=== PATIENT | female | born 1965 | race Caucasian/White ===

== ENCOUNTER 2018-02-28 08:26 | Emergency (ER) | payer OTHER ==
[~2018-02-28] VITALS: Ht 161.3 cm; Wt 99.4 kg
[~2018-02-28 08:26] MED LIST: ESCI10TA17 PO
[2018-02-28 08:46] VITALS: TEMP 36.9; Ht 161.3 cm; Wt 99.4 kg
[2018-02-28 09:01] VITALS: O2SAT 99
[2018-02-28] MEDS ORDERED: BIOT50006 PO (09:12)
[2018-02-28 09:29] LABS: BASO % 0.5 %; BASO ABS # 0.03 K/uL (0-0.2); EOS % 1.8 %; HEMATOCRIT 42.4 % (37-47); HEMOGLOBIN 13.8 g/dL (12.0-16.0); IG# 0.02 K/uL (0.00-0.02); LYMPH % 28.2 %; MEAN CELL VOLUME 88.1 fL (80-100); MEAN CORPUSCULAR HEMOGLOBIN 28.7 pg (25-34); MEAN CORPUSCULAR HGB CONC 32.5 g/dl (32-36); MEAN PLATELET VOLUME 8.8 fL (7.4-10.4); MONO ABS # 0.57 K/uL (0.11-0.59); NEUT % 59.1 %; NEUT ABS # 3.36 K/uL (1.4-6.5); PLATELET COUNT 283 K/uL (130-400); RED CELL DISTRIBUTION WIDTH SD 45.4 fL (36.4-46.3); WHITE BLOOD COUNT 5.68 K/uL (4.8-10.8)
--- NOTE | 2018-02-28 09:36 | DIAGNOSTIC IMAGING REPORT ---
CHEST ONE VIEW PORTABLE HISTORY: 52 years-old Female Evaluate Fever/Sepsis acute fever with sepsis COMPARISON: None available TECHNIQUE: Portable AP view of the chest FINDINGS: Cardiomediastinal and hilar silhouettes are within normal limits. Mild right hemidiaphragmatic elevation. Subsegmental left basilar opacities. There is no pneumothorax, pleural effusion or overt pulmonary edema. The bones of the chest appear grossly intact. IMPRESSION: 1. No acute process. 2. Subsegmental left basilar opacities suggest atelectasis. The above report was generated using voice recognition software. It may contain grammatical, syntax or spelling errors. Electronically signed by: Marky Dimas M.D. 02/28/2018 9:34 AM Dictated Date/Time: 02/28/2018 9:33 AM
[2018-02-28 09:41] LABS: PTT PATIENT 27.6 SECONDS (21.0-31.0)
[2018-02-28 09:44] LABS: ALBUMIN 3.7 gm/dl (3.4-5.0); ALKALINE PHOSPHATASE 71 U/L (45-117); ALT/SGPT 24 U/L (12-78); AST/SGOT 17 U/L (15-37); BLOOD UREA NITROGEN 9 mg/dl (7-18); CALCIUM 8.3 mg/dl (8.5-10.1); CARBON DIOXIDE 28 mmol/L (21-32); CKMB < 1.0 ng/ml (0.5-3.6); CREATININE 0.92 mg/dl (0.60-1.20); GLUCOSE 103 mg/dl (70-99); LIPASE 143 U/L (73-393); POTASSIUM 4.2 mmol/L (3.5-5.1); SODIUM 138 mmol/L (136-145); TOTAL PROTEIN 7.6 gm/dl (6.4-8.2)
[2018-02-28 12:30] VITALS: BP 106/55; PULSE 68; O2SAT 96
--- NOTE | 2018-02-28 13:02 | EMERGENCY ROOM VISIT NOTE ---
History Report prepared by Neri: Jose Srinivasan Under the Supervision of: Dr. Veto Clemens D.O. First contact with patient: 09:11 Chief Complaint: SHORTNESS OF BREATH Stated Complaint: SHORTNESS OF BREATH, BACK PAIN, DIZZINESS Nursing Triage Summary: Shortness of breath with her usual activity. Going upstairs with increased difficulty. History of Present Illness The patient is a 52 year old female who presents to the Emergency Room with complaints of worsening shortness of breath that began on , 4 days ago. The patient states that she first noticed becoming unusually short of breath when she was doing lunges at the gym. She then noticed becoming short of breath while walking up the stairs. She has been dizzy and has had some back pain with the shortness of breath, but she denies any chest pain. She denies any recent long trips/travels or swelling in her lower extremities. Source of History: patient Onset: 4 days ago Position: chest Quality: other (SOB) Timing: worsening Modifying Factors (Worsening): exertion Associated Symptoms: + back pain Note: Dizziness Review of Systems See HPI for pertinent positives & negatives. A total of 10 systems reviewed and were otherwise negative. Family History Cancer Heart disease Social History Smoking Status: Former Smoker Drug Use: none Marital Status: Housing Status: lives with significant other Current/Historical Medications Scheduled Biotin (Biotin), 5,000 MCG PO DAILY Escitalopram (Lexapro), 10 MG PO DAILY Allergies Coded Allergies: Sulfa Drugs (Verified Allergy, Unknown, 02/28/18) Physical Exam Vital Signs Date Time Temp Pulse Resp B/P (MAP) Pulse Ox O2 Delivery O2 Flow Rate FiO2 02/28/18 12:30 68 15 106/55 96 Room Air 02/28/18 12:00 72 20 118/63 94 Room Air 02/28/18 11:27 68 18 119/79 100 Room Air 02/28/18 10:30 62 16 111/71 95 Room Air 02/28/18 10:00 60 16 110/64 94 Room Air 02/28/18 09:30 61 20 117/69 95 Room Air 02/28/18 09:15 65 02/28/18 09:12 66 18 115/60 94 Room Air 02/28/18 09:12 Room Air 02/28/18 09:11 94 Room Air 02/28/18 09:01 99 Room Air 02/28/18 09:01 99 Room Air 02/28/18 08:46 36.9 85 20 125/76 96 Room Air Physical Exam CONSTITUTIONAL/VITAL SIGNS: Reviewed / noted above. GENERAL: Non-toxic in appearance. INTEGUMENTARY: Warm, dry, and [place]. HEAD: Normocephalic. EYES: without scleral icterus or trauma. ENT/OROPHARYNX: clear and moist. LYMPHADENOPATHY/NECK: Is supple without lymphadenopathy or meningismus. RESPIRATORY: Lungs clear and equal. CARDIOVASCULAR: Regular rate and rhythm. GI/ABDOMEN: Soft and nontender. No organomegaly or pulsatile mass. No rebound or guarding. Normal bowel sounds. EXTREMITIES: Warm and well perfused. BACK: No CVA tenderness. NEUROLOGICAL: Intact without focal deficits. PSYCHIATRIC: normal affect. MUSCULOSKELETAL: Normally developed with good muscle tone. Medical Decision & Procedures ER Provider Diagnostic Interpretation: Radiology results as stated below per my review and radiologist interpretation: CHEST ONE VIEW PORTABLE HISTORY: 52 years-old Female Evaluate Fever/Sepsis acute fever with sepsis COMPARISON: None available TECHNIQUE: Portable AP view of the chest FINDINGS: Cardiomediastinal and hilar silhouettes are within normal limits. Mild right hemidiaphragmatic elevation. Subsegmental left basilar opacities. There is no pneumothorax, pleural effusion or overt pulmonary edema. The bones of the chest appear grossly intact. IMPRESSION: 1. No acute process. 2. Subsegmental left basilar opacities suggest atelectasis. The above report was generated using voice recognition software. It may contain grammatical, syntax or spelling errors. Electronically signed by: Marky Dimas M.D. 02/28/2018 9:34 AM Dictated Date/Time: 02/28/2018 9:33 AM Laboratory Results 02/28/18 09:05 Red Blood Count 4.81, Mean Corpuscular Volume 88.1, Mean Corpuscular Hemoglobin 28.7, Mean Corpuscular Hemoglobin Concent 32.5, Mean Platelet Volume 8.8, Neutrophils (%) (Auto) 59.1, Lymphocytes (%) (Auto) 28.2, Monocytes (%) (Auto) 10.0, Eosinophils (%) (Auto) 1.8, Basophils (%) (Auto) 0.5, Neutrophils # (Auto ) 3.36, Lymphocytes # (Auto) 1.60, Monocytes # (Auto) 0.57, Eosinophils # (Auto ) 0.10, Basophils # (Auto) 0.03 02/28/18 09:05 Test 02/28/18 09:05 02/28/18 11:46 White Blood Count 5.68 K/uL (4.8-10.8) Red Blood Count 4.81 M/uL (4.2-5.4) Hemoglobin 13.8 g/dL (12.0-16.0) Hematocrit 42.4 % (37-47) Mean Corpuscular Volume 88.1 fL (80-100) Mean Corpuscular Hemoglobin 28.7 pg (25-34) Mean Corpuscular Hemoglobin Concent 32.5 g/dl (32-36) Platelet Count 283 K/uL (130-400) Mean Platelet Volume 8.8 fL (7.4-10.4) Neutrophils (%) (Auto) 59.1 % Lymphocytes (%) (Auto) 28.2 % Monocytes (%) (Auto) 10.0 % Eosinophils (%) (Auto) 1.8 % Basophils (%) (Auto) 0.5 % Neutrophils # (Auto) 3.36 K/uL (1.4-6.5) Lymphocytes # (Auto) 1.60 K/uL (1.2-3.4) Monocytes # (Auto) 0.57 K/uL (0.11-0.59) Eosinophils # (Auto) 0.10 K/uL (0-0.5) Basophils # (Auto) 0.03 K/uL (0-0.2) RDW Standard Deviation 45.4 fL (36.4-46.3) RDW Coefficient of Variation 14.0 % (11.5-14.5) Immature Granulocyte % (Auto) 0.4 % Immature Granulocyte # (Auto) 0.02 K/uL (0.00-0.02) Prothrombin Time 10.1 SECONDS (9.0-12.0) Prothromb Time International Ratio 1.0 (0.9-1.1) Activated Partial Thromboplast Time 27.6 SECONDS (21.0-31.0) Partial Thromboplastin Ratio 1.1 D-Dimer 310 ug/L FEU (0-500) Anion Gap 4.0 mmol/L (3-11) Est Creatinine Clear Calc Drug Dose 83.0 ml/min Estimated GFR () 84.1 Estimated GFR (Non- 72.6 BUN/Creatinine Ratio 10.2 (10-20) Calcium Level 8.3 mg/dl (8.5-10.1) Total Bilirubin 0.3 mg/dl (0.2-1) Direct Bilirubin < 0.1 mg/dl (0-0.2) Aspartate Amino Transf (AST/SGOT) 17 U/L (15-37) Alanine Aminotransferase (ALT/SGPT) 24 U/L (12-78) Alkaline Phosphatase 71 U/L (45-117) Total Creatine Kinase 73 U/L (26-192) Creatine Kinase MB < 1.0 ng/ml (0.5-3.6) Creatine Kinase MB Ratio (0-3.0) Troponin I < 0.015 ng/ml (0-0.045) Total Protein 7.6 gm/dl (6.4-8.2) Albumin 3.7 gm/dl (3.4-5.0) Lipase 143 U/L (73-393) Urine Color YELLOW Urine Appearance CLEAR (CLEAR) Urine pH 7.0 (4.5-7.5) Urine Specific [place] 1.013 (1.000-1.030) Urine Protein NEG (NEG) Urine Glucose (UA) NEG (NEG) Urine Ketones NEG (NEG) Urine Occult Blood NEG (NEG) Urine Nitrite NEG (NEG) Urine Bilirubin NEG (NEG) Urine Urobilinogen NEG (NEG) Urine Leukocyte Esterase TRACE (NEG) Urine WBC (Auto) 1-5 /hpf (0-5) Urine RBC (Auto) 0-4 /hpf (0-4) Urine Hyaline Casts (Auto) 1-5 /lpf (0-5) Urine Epithelial Cells (Auto) 20-30 /lpf (0-5) Urine Bacteria (Auto) NEG (NEG) Laboratory results as stated above per my review. ECG Per My Interpretation Indication: SOB/dyspnea Rate (beats per minute): 67 Rhythm: normal sinus Findings: no ectopy, other (no st elevation or depression) ED Course 0913: Previous medical records were reviewed. The patient was evaluated in room B5. A complete history and physical examination was performed. 1309: On reevaluation, the patient is resting in bed. I discussed the results and findings with the patient. She verbalized agreement of the treatment plan. The patient was discharged home. Medical Decision the differential was considered includes acute myocardial infarction, acute coronary syndrome, myocarditis, pericarditis, pericardial effusions /tamponad, esophageal perforation, pulmonary embolism, pneumonia, pneumothorax, cardiomyopathy, congestive heart, anemia , COPD/asthma exacerbation. This is a 52-year-old female who presents to the ED with a chief complaint of shortness of breath with exertion. The patient reports that her symptoms started on . She states that she seems to get more winded walking up some steps. The patient states that her symptoms seem to be better at rest. She denies any sentiment past medical history. She denies any long trips or the other DVT risk factors. She has not had any lower extremity swelling or discomfort. The patient does not smoke. She states that she normally exercises 4 times a week and has no shortness of breath or difficulty with this. She denies any chest discomforts. Her physical exam was normal. Lungs are clear. Vital signs are normal. She has not had any upper respiratory symptoms or fevers. A chest x-ray did not show acute disease. An EKG shows a normal sinus rhythm at a rate of 67 without acute injury pattern. D-dimer was negative. CBC and complete metabolic panel were normal and a troponin was negative. Lipase was negative and urine did not show infection. The patient was told the results of the test. She is felt to be stable for discharge and outpatient follow-up. If her symptoms persist she might benefit from stress testing. She will return for any worsening or new symptoms. Medication Reconcilliation Current Medication List: was personally reviewed by me Blood Pressure Screening Patient's blood pressure: Normal blood pressure Impression Primary Impression: Dyspnea Scribe Attestation The scribe's documentation has been prepared under my direction and personally reviewed by me in its entirety. I confirm that the note above accurately reflects all work, treatment, procedures, and medical decision making performed by me. Departure Information Dispostion Home / Self-Care Patient Instructions My [facility] Additional Instructions Follow-up with your doctor for further care and evaluation in 1-4 days if symptoms persist. Return to the emergency department for worsening or new symptoms or any concerns. You have been examined and treated today on an emergency basis only. This is not a substitute for, or an effort to provide, complete comprehensive medical care. It is impossible to recognize and treat all injuries or illnesses in a single emergency department visit. It is therefore important that you follow up closely with your doctor. Call as soon as possible for an appointment. You chest X-ray, EKG, blood work and vital signs were normal today. The cause for your symptoms at this time are not clear. If symptoms persist see your doctor.
== END 2018-02-28 13:24 | disposition home or self-care (01) ==
LOC: C.EDB 08:27
DX: R06.00 Dyspnea, unspecified (principal); Z87.891 Personal history of nicotine dependence; Z79.899 Other long term (current) drug therapy; Z88.2 Allergy status to sulfonamides